=== PATIENT | female | born 1955 | race Caucasian/White ===

== ENCOUNTER 2016-12-05 13:48 | Emergency (ER) | payer OTHER ==
--- NOTE | 2016-12-05 13:53 | PDOC ---
History of Present Illness - General History Source: Patient Exam Limitations: No Limitations - History of Present Illness Initial Comments: 12/05/16 15:06 The patient is a 60 year old female, with no significant past medical history, who presents to the emergency department with right elbow pain status post a fall earlier today at 11:30am while she was hiking. The patient reports that she was walking on a trail when she tripped over a root, falling forward, and breaking her fall with an outstretched right arm. She notes that moving her right elbow, particularly pronation and the fingers of her right hand exacerbate her pain. The patient notes associated numbness at the tips of her fingers on her right hand, minimal shoulder discomfort, and a few superficial scrapes on her right elbow and left knee. She states that she did take 2 advil prior to arrival which helped alleviate her pain. The patient reports no previous injury or trauma to her right arm. Pt denies any head injury, LOC. She denies loss of consciousness, head injury, neck pain, and back pain. She denies chest pain, palpitation, shortness of breath, headache, lightheadedness, and dizziness. The patient denies other bodily pain or injury. Allergies: None Social history: Never smoked, 1-2 drinks per day PCP: Dr. Christopher Banegas <Genie Altamirano - Last Filed: 12/05/16 15:06> <Marek Schulte - Last Filed: 12/05/16 16:12> - General Chief Complaint: Injury Stated Complaint: RIGHT ARM PAIN Time Seen by Provider: 12/05/16 13:51 Past History <Genie Altamirano - Last Filed: 12/05/16 15:06> <Marek Schulte - Last Filed: 12/05/16 16:12> - Past Medical History Allergies/Adverse Reactions: Allergies Allergy/AdvReac Type Severity Reaction Status Date / Time No Known Allergies Allergy Unverified 12/05/16 13:49 Home Medications: Ambulatory Orders Levothyroxine [Synthroid -] 25 mcg PO DAILY 12/05/16 Oxycodone HCl/Acetaminophen [Percocet 5-325 mg Tablet -] 1 combo PO Q6H PRN #10 tablet MDD 4 12/05/16 Review of Systems - Review of Systems Able to Perform ROS?: Yes Comments:: 12/05/16 15:07 CONSTITUTIONAL: No reported: Fever, Chills, Diaphoresis, Generalized Weakness, Malaise, Loss of Appetite HEENT: No reported: Rhinorrhea, Nasal Congestion, Throat Pain, Throat Swelling, Difficulty Swallowing, Mouth Swelling, Ear Pain, Eye Pain, Visual Changes CARDIOVASCULAR: No reported: Chest Pain, Syncope, Palpitations, Irregular Heart Rate, Lightheadedness, Peripheral Edema RESPIRATORY: No reported: Cough, Shortness of Breath, SOB with Exertion, Orthopnea, Wheezing , Stridor, Hemoptysis GASTROINTESTINAL: No reported: Abdominal pain, Abdominal Distension, Nausea, Vomiting, Diarrhea, Constipation, Melena, Hematochezia GENITOURINARY: No reported: Dysuria, Frequency, Urgency, Hesitancy, Flank Pain, Genital Pain MUSCULOSKELETAL: +Right elbow pain, +Right shoulder discomfort No reported: Joint Swelling, Back pain, Neck Pain SKIN: +Scrapes to her right elbow and left knee No reported: Rash, Itching, Pallor HEMATOLOGIC/IMMUNOLOGIC: No reported: Easy Bleeding, Easy Bruising, Lymphadenopathy, Frequent infections ENDOCRINE: No reported: Unexplained Weight Gain, Unexplained Weight Loss, Heat Intolerance , Cold Intolerance NEUROLOGIC No reported: Headache, Focal Weakness, Vertigo, Lightheadedness, Unsteady Gait , Seizure, Mental Status Changes, Incontinence PSYCHIATRIC: No reported: Anxiety, Depression <Genie Altamirano - Last Filed: 12/05/16 15:06> *Physical Exam - Vital Signs Last Vital Signs Temp Pulse Resp BP Pulse Ox 98 F 87 20 133/82 99 12/05/16 13:49 12/05/16 13:49 12/05/16 13:49 12/05/16 13:49 12/05/16 13:49 - Physical Exam Comments: 12/05/16 15:07 GENERAL: The patient is awake, alert, and fully oriented, Nontoxic - in no acute distress. HEAD: Normocephalic, atraumatic. EYES: extraocular movements intact, sclera anicteric, conjunctiva clear. ENT: Normal voice, Moist mucous membranes. NECK: Normal range of motion, supple LUNGS: Breath sounds equal, clear to auscultation bilaterally. No wheezes, no rhonchi, no rales. HEART: Regular rate and rhythm, normal S1 and S2 without murmur, rub or gallop. ABDOMEN: Soft, nontender, normoactive bowel sounds. No guarding, no rebound. . No CVA tenderness EXTREMITIES: Mild tenderness to radial head of R arm, +pain with pronation of arm, mild tenderness to distal forearm and dorsal wrist. sensation an dpulses symmetric and intact. Able to flex/extend R elbow with iminal discomfort. No limitations of ROM of shoulder, nor LUE, b/l LE. Back: No midline tenderness to the cervical, thoracic or lumbar spine Musculoskelatal: FROM of b/l shoulders, FROM of hips, knees, ankles - No signs of ecchymosis, erythema, or crepitus noted on palpation extremities, chest wall , clavicals, ribs, back. Minimal tenderness of L anterior shoulder that seems muscular - no bony tenderness, normal ROM of both shoulders without any discomfort or limitations. NEUROLOGICAL: No facial assymetry, Normal speech, PSYCH: Normal mood, normal affect. SKIN: superficial abrasion to L knee <Genie Altamirano - Last Filed: 12/05/16 15:06> Procedures - Consent Consent obtained: Verbal - Splinting Splint Location: Right: Elbow Pre-Proc Neuro Vasc Exam: normal Hand-Made Type: orthoglass Splint Type: Yes: Posterior Post-Proc Neuro Vasc Exam: normal Guero Bandage: yes, 4" Sling: Yes Complications: No Post splint xray: No <Marek Schulte - Last Filed: 12/05/16 16:12> Medical Decision Making - Medical Decision Making 12/05/16 14:33 60y F no pmhx presents with R elbow / wrist pain s/p mechanical fall after tripping on a root. The pt endorses pain to her forearm when she supinates her wrist. no other injuries or pain. TTP to radial head and mild tendernes to dorsal wrist R wrist, n/v intact, pulses intact. will obtain xray pt declines pain meds, had ibuprofen approx 1 hr prior to arrival A portion of this note was documented by scribe services under my direction. I have reviewed the details of the note, within reason, and agree with the documentation with the following case summary and management plan written by me 12/05/16 16:05 pts xray shows possible impaction fx of prxo radial head pt put in a posterior splint with sling will have pt fu with orthopedics for further evaluation none WB until evaulated by ortho return precautions were discussed I discussed the physical exam findings, ancillary test results and final diagnoses with the patient. I answered all of the patient's questions. The patient was satisfied with the care received and felt comfortable with the discharge plan and treatment plan. The patient will call their primary care physician within 24 hours to arrange follow-up and will return to the Emergency Department with any new, persistent or worsening symptoms. <Marek Schulte - Last Filed: 12/05/16 16:12> *DC/Admit/Observation/Transfer - Attestations Scribe Attestion: 12/05/16 15:08 Documentation prepared by NKECHI Giang, acting as electromedical equipment technician for Marek Schulte MD. <Genie Altamirano - Last Filed: 12/05/16 15:06> - Discharge Dispostion Admit: No <Marek Schulte - Last Filed: 12/05/16 16:12> Diagnosis at time of Disposition: Traumatic closed nondisp fx of head or proximal epiphysis of radius - Discharge Dispostion Condition at time of disposition: Stable - Prescriptions Prescriptions: Oxycodone HCl/Acetaminophen [Percocet 5-325 mg Tablet -] 1 combo PO Q6H PRN #10 tablet MDD 4 PRN Reason: Pain - Referrals Referrals: William Avila MD [Staff Physician] - - Patient Instructions Printed Discharge Instructions: How to Use a Sling, DI for Elbow Fracture Additional Instructions: Return to the emergency department immediately with ANY new, persistent or worsening symptoms including wrosening pain, numbness/tingling/weakness of your fingers/hand. TAke motrin for pain, if you have more sever pain, you may take a percocet. You MUST call and follow up with an orthopedist for further evaluation of your symptoms within 3-4 days. Results were discussed with you. Please make sure your doctor reviews the results of your emergency evaluation. If you had any xrays during your visit, it was read preliminarily by myself, a Radiologist will review it and if there are any additional findings we will call you. Print Language: OCCITAN
[2016-12-05 13:59] VITALS: BP 133/82; PULSE 87; TEMP 98; BMI 28.3
== END 2016-12-05 16:19 | disposition home or self-care (01) ==
LOC: FER 13:48
PROC: 2W38X1Z Immobilization of Right Upper Extremity using Splint (ICD-10-PCS; principal; 2016-12-05)
DX: S52.124A Nondisplaced fracture of head of right radius, initial encounter for closed fracture (principal); W01.0XXA Fall on same level from slipping, tripping and stumbling without subsequent striking against object, initial encounter; Y93.01 Activity, walking, marching and hiking; Y92.828 Other wilderness area as the place of occurrence of the external cause; Y99.8 Other external cause status
CPT/HCPCS: 73070-TC-RT; 73090-TC-RT; 73110-TC-RT; 73130-TC-RT; 99281-25